=== PATIENT | female | born 1985 | race Caucasian/White ===

== ENCOUNTER 2023-01-12 08:30 | Emergency (ER) | payer MEDICAID ==
[~2023-01-12] VITALS: Ht 157.5 cm; Wt 59.1 kg
[2023-01-12 08:36] VITALS: BP 103/68; TEMP 98.2
[2023-01-12] MEDS ORDERED: MEDROL 4MG DOSPA4 MG PO (09:36)
[2023-01-12 09:47] VITALS: PULSE 90
== END 2023-01-12 09:44 | disposition home or self-care (01) ==
LOC: COL.ER 08:30
DX: G89.18 Other acute postprocedural pain (principal); R51.9 Headache, unspecified; F17.200 Nicotine dependence, unspecified, uncomplicated; Z28.310 Unvaccinated for COVID-19; Z87.828 Personal history of other (healed) physical injury and trauma
CPT/HCPCS: J1100